=== PATIENT | male | born 1955 | race Caucasian/White ===

== ENCOUNTER 2021-04-08 08:00 | Outpatient (CLI) | payer BC | END 2021-04-08 23:59 | disposition home or self-care (01) | LOC: LAB.S 08:00 | PROVIDERS: ATTEND Physician Assistant | DX: R09.89 Other specified symptoms and signs involving the circulatory and respiratory systems (principal); Z20.822 Contact with and (suspected) exposure to COVID-19 ==

== ENCOUNTER 2021-04-13 08:00 | Outpatient (CLI) | payer BC ==
--- NOTE | 2021-04-13 10:17 | XRAY Report ---
PROCEDURE: Chest 2 View X-Ray INDICATIONS: PERSISTENT COUGH TECHNIQUE: 2 views of the chest. COMPARISON: None. FINDINGS: Surgical changes and devices: Surgical clips are seen in the neck. Lungs and pleura: No pleural effusions or pneumothorax. Lungs are clear. Mediastinum: Mediastinal contours are normal. Heart size is normal. Bones and chest wall: No suspicious bony abnormalities. Soft tissues appear unremarkable. Age-rela patrica degenerative changes are seen in the spine. IMPRESSION: No acute cardiopulmonary abnormality. Reviewed by: Alton Borges MD on 04/13/2021 10:16 AM [facility] Approved by: Alton Borges MD on 04/13/2021 10:16 AM [facility] Station ID: [id number]
== END 2021-04-13 23:59 | disposition home or self-care (01) ==
LOC: DI.S 08:00
PROVIDERS: ATTEND Emergency Medicine
DX: R05.3 Chronic cough (principal); R05.9 Cough, unspecified; Z20.822 Contact with and (suspected) exposure to COVID-19

== ENCOUNTER 2021-08-26 10:20 | Outpatient (CLI) | payer BC ==
[2021-08-26 14:52] LABS: BASOPHILS % (AUTO) 0.2 %; EOSINOPHILS % (AUTO) 0.4 %; HCT - HEMATOCRIT 49.5 % (42.0-52.0); HGB - HEMOGLOBIN 16.3 g/dL (14.0-18.0); MEAN CORPUSCULAR HEMOGLOBIN 31.8 pg (27.0-31.0); MEAN CORPUSCULAR HGB CONC 32.9 g/dL (32.0-36.0); MEAN CORPUSCULAR VOLUME 96.5 fL (80.0-94.0); MONOCYTES # (AUTO) 0.6 10^3/uL (0.0-1.0); MONOCYTES % (AUTO) 6.6 %; NEUTROPHILS # (AUTO) 6.3 10^3/uL (1.5-6.6); NEUTROPHILS % (AUTO) 70.5 %; PLT - PLATELET COUNT 296 10^3/uL (130-450); RED BLOOD COUNT 5.13 10^6/uL (4.70-6.10); RED CELL DISTRIBUTION WIDTH 13.2 % (12.0-15.0)
[2021-08-26 15:40] LABS: ALBUMIN 4.5 g/dL (3.2-5.5); ALBUMIN/GLOBULIN RATIO 1.7 (1.0-2.2); BILIRUBIN,TOTAL 1.4 mg/dL (0.2-1.0); CALCIUM 9.9 mg/dL (8.5-10.3); POTASSIUM 5.1 mmol/L (3.5-5.0); TOTAL PROTEIN 7.2 g/dL (6.7-8.2)
[2021-08-26 15:50] LABS: PSA FREE 0.81 ng/mL (0.16-2.81)
[2021-08-26 15:51] LABS: PSA TOTAL 3.575 ng/mL (0.000-2.000)
[2021-08-26 15:53] LABS: THYROID STIMULATING HORMONE 2.84 uIU/mL (0.34-5.60)
[2021-08-26 15:54] LABS: FREE T4 (FREE THYROXINE) 0.91 ng/dL (0.58-1.64)
== END 2021-08-26 10:21 | disposition home or self-care (01) ==
LOC: LAB.S 10:20
PROVIDERS: ATTEND Nurse Practitioner Family
DX: I10 Essential (primary) hypertension (principal); Z12.5 Encounter for screening for malignant neoplasm of prostate
CPT/HCPCS: 36415; 80053; 84153; 84154; 84439; 84443; 85025

== ENCOUNTER 2022-06-07 19:01 | Emergency (ER) | payer BC, MEDICARE ==
[2022-06-07 19:14] VITALS: BP 127/84
--- NOTE | 2022-06-07 19:39 | ED Physician Documentation ---
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 He states there is a cut in the G-tube tubing that lead to leaking today. He is here for replacement. States is a 18 [place] G-tube. Review of Systems Constitutional: denies: Fever GI: denies: Abdominal Pain, Vomiting, Diarrhea PD PAST MEDICAL HISTORY - Past Medical History Respiratory: None - Past Surgical History Derm: Skin cancer surgery - Present Medications Home Medications: Ambulatory Orders Medication Instructions Recorded Confirmed Acetaminophen [Tylenol] 325 mg PO DAILY PM 01/21/22 05/27/22 Valsartan 160 mg PO DAILY 01/21/22 05/27/22 hydrOXYzine HCL [Hydroxyzine HCl] 10 mg PO DAILY 01/21/22 05/27/22 traZODone [Desyrel] 100 mg PO HS 01/21/22 05/27/22 Oxycodone HCl/Acetaminophen 5 ml PO Q6HR PRN #500 ml 02/22/22 05/27/22 [Oxycodone-Acetaminophn 5-325/5] Scopolamine Patch [Transderm-Scop] 1 each TOP Q3D 05/06/22 05/27/22 Trazodone HCl 100 mg PO DAILY 90 Days #90 tablet 05/27/22 - Allergies Allergies/Adverse Reactions: Allergies Allergy/AdvReac Type Severity Reaction Status Date / Time No Known Drug Allergies Allergy Verified 06/07/22 19:08 - Social History Smoking Status: Unknown if ever smoked PD ED PE NORMAL - Vitals Vital signs reviewed: Yes - General General: Alert and oriented X 3, No acute distress - Abdomen Abdomen: Soft, Non tender, Non distended, Other (G-tube in place in the left upper quadrant) - Derm Derm: Warm and dry - Neuro Neuro: Alert and oriented X 3 - Psych Psych: Normal mood, Normal affect Results - Vitals Vitals: Vital Signs - 24 hr 06/07/22 19:08 Temperature 36.9 C Heart Rate 85 Respiratory 16 Rate Blood Pressure 127/84 H O2 Saturation 98 Oxygen O2 Source Room air PD Medical Decision Making - ED course Complexity details: reviewed results, re-evaluated patient, considered differential, d/w patient ED course: The G-tube was replaced without difficulty with a new 18 [place] G-tube. The G-tube was flushed without any pain and gastric contents returned. The G-tube has been in place since October of last year. Patient will follow-up with his doctor for further care. Patient counseled regarding signs and symptoms for which I believe and urgent re-evaluation would be necessary. Patient with good understanding of and agreement to plan and is comfortable going home at this time This document was made in part using voice recognition software. While efforts are made to proofread this document, sound alike and grammatical errors may occur. Departure - Departure Disposition: 01 Home, Self Care Clinical Impression: Gastrostomy tube dysfunction Condition: Good Instructions: ED G Tube Replacement Follow-Up: your,doctor as needed [Other] Comments: Please follow-up with your doctor for further care. Your G-tube was replaced today. Return if you worsen Discharge Date/Time: 06/07/22 19:46
== END 2022-06-07 19:46 | disposition home or self-care (01) ==
LOC: ED 19:01
DX: K94.23 Gastrostomy malfunction (principal)
CPT/HCPCS: 99281; 99283

== ENCOUNTER 2022-11-24 20:19 | Emergency (ER) | payer BC, MEDICARE ==
--- NOTE | 2022-11-24 20:43 | ED Physician Documentation ---
History of Present Illness - Stated complaint Stated Complaint: ABD INJ - Chief complaint Chief Complaint: General - History obtained from History obtained from: Patient (67-year-old gentleman has a PEG tube because of a history of throat cancer. It popped out tonight just about half an hour ago.) PD PAST MEDICAL HISTORY - Past Medical History Respiratory: None - Past Surgical History Past Surgical History: Yes Derm: Skin cancer surgery - Present Medications Home Medications: Ambulatory Orders Medication Instructions Recorded Confirmed Acetaminophen [Tylenol] 325 mg PO DAILY PM 01/21/22 09/02/22 Valsartan 160 mg PO DAILY 01/21/22 09/02/22 hydrOXYzine HCL [Hydroxyzine HCl] 10 mg PO DAILY 01/21/22 09/02/22 traZODone [Desyrel] 100 mg PO HS 01/21/22 09/02/22 Oxycodone HCl/Acetaminophen 5 ml PO Q6HR PRN #500 ml 02/22/22 09/02/22 [Oxycodone-Acetaminophn 5-325/5] Scopolamine Patch [Transderm-Scop] 1 each TOP Q3D 05/06/22 09/02/22 - Allergies Allergies/Adverse Reactions: Allergies Allergy/AdvReac Type Severity Reaction Status Date / Time No Known Drug Allergies Allergy Verified 11/24/22 20:27 - Social History Does the pt smoke?: No Smoking Status: Unknown if ever smoked PD ED PE NORMAL - Vitals Vital signs reviewed: Yes - General General: Alert and oriented X 3, No acute distress - HEENT HEENT: Other (Postsurgical changes to the neck and dysphonia related to same.) - Abdomen Abdomen: Normal bowel sounds, Soft, Non tender, Other (PEG tube site left upper quadrant) - Derm Derm: Normal color, Warm and dry - Neuro Neuro: Alert and oriented X 3, Normal speech Results - Vitals Vitals: Vital Signs - 24 hr 11/24/22 20:21 Temperature 36.8 C Heart Rate 87 Respiratory 19 Rate Blood Pressure 136/81 H O2 Saturation 96 Oxygen O2 Source Room air PD Medical Decision Making - ED course ED course: He had an 18 [place] PEG tube, the smallest I had was at 22 but we were able to get it in without issue. Gastric juices started flowing immediately confirming PEG tube placement. Departure - Departure Disposition: 01 Home, Self Care Clinical Impression: PEG tube malfunction Condition: Good Record reviewed to determine appropriate education?: Yes Instructions: ED G Tube Replacement Comments: We replaced your PEG tube tonight. I did a brief Internet search and it looks like you should have it replaced every 6 to 12 months. You can ask the [facility] about this at your next appointment. Return for new or worsening symptoms.
[2022-11-24 20:53] VITALS: BP 132/78
== END 2022-11-24 20:50 | disposition home or self-care (01) ==
LOC: ED 20:19
DX: K94.23 Gastrostomy malfunction (principal); Z85.819 Personal history of malignant neoplasm of unspecified site of lip, oral cavity, and pharynx
CPT/HCPCS: 43762